=== PATIENT | female | born 1965 | race Caucasian/White ===

== ENCOUNTER 2019-02-13 13:39 | Inpatient (IN) | payer MEDICAID ==
[~2019-02-13] VITALS: Ht 157.5 cm; Wt 86.6 kg
--- NOTE | 2019-02-13 14:00 | NUR ---
no answer in er lobby
[2019-02-13 14:45] VITALS: BP 140/76
--- NOTE | 2019-02-13 15:12 | NUR ---
TO ED 08 WITH STEADY GAIT
--- NOTE | 2019-02-13 15:30 | NUR ---
C/O SEVERE ABDOMINAL PAIN AT SITE OF WOUND VAC FOR 1 WEEK. PT UNDERWENT SURGERY FOR UMBILICAL HERNIA AND SITE BECAME INFECTED, WOUND VAC WAS PLACED TWO WEEKS AGO. ONE WEEK AGO PT BEGAN HAVING INTENSE PAIN/ ODOR/ DISCHARGE AT SITE OF WOUND VAC. PT STATES THAT A HOME HEALTH NURSE VISITS TWICE A WEEK TO CHANGE WOUND VAC, LAST CHANGE WAS ON SATURDAY. PMH: DIABETES, HTN, HYSTERECTOMY MEDS: LISINOPRIL, GABAPENTIN, INSULIN PUMP, ANALOG, TRULICITY NKA POC GLUCOSE: 217
--- NOTE | 2019-02-13 15:53 | NUR ---
PT AMBULATED TO BATHROOM.
[2019-02-13] MEDS ORDERED: NACL 0.9% 1,000 ML IV ONE (16:35)
[2019-02-13] MEDS ORDERED: MORPHINE SULFATE 4 MG/ML SYR IVP ONE (16:35)
[2019-02-13] MEDS ORDERED: PIPERACILLIN/TAZOBACTAM 3.375 GM in DEXTROSE 5% 50 ML IV ONE (16:35)
[2019-02-13] MEDS ORDERED: VANCOMYCIN 1,000 MG in DEXTROSE 5% 250 ML IV ONE (16:35)
--- NOTE | 2019-02-13 16:41 | NUR ---
LAB AT BEDSIDE TAKING BLOOD
[2019-02-13] MEDS ORDERED: VANCOMYCIN 1,000 MG VIAL ONE (16:55)
[2019-02-13] MEDS ORDERED: PIPERACILLIN/TAZOBACTAM 3.375 GM VIAL IV ONE (16:55)
[2019-02-13 17:04] LABS: BASOPHILS # (AUTO) 0.1 K/uL (0.00-0.22); BASOPHILS % (AUTO) 0.9 % (0.0-2.0); EOSINOPHILS # (AUTO) 0.3 K/uL (0-0.4); EOSINOPHILS % (AUTO) 2.7 % (0.0-4.0); HEMATOCRIT 38.5 % (36-48); HEMOGLOBIN 12.6 g/dL (12.0-16.0); LYMPHOCYTES # (AUTO) 3.3 K/uL (2.5-16.5); LYMPHOCYTES % (AUTO) 31.6 % (20.5-51.1); MEAN CORPUSCULAR HEMOGLOBIN 28 pg (27-31); MEAN CORPUSCULAR HGB CONC 33 g/dL (33-37); MEAN CORPUSCULAR VOLUME 84.6 fL (80-94); MONOCYTES # (AUTO) 0.6 K/uL (0.8-1.0); MONOCYTES % (AUTO) 6.2 % (1.7-9.3); NEUTROPHILS # (AUTO) 6.1 K/uL (1.8-7.7); NEUTROPHILS % (AUTO) 58.6 % (42.2-75.2); PLATELET COUNT (AUTO) 251 K/uL (140-450); RED BLOOD CELL COUNT(AUTO) 4.56 MIL/uL (4.20-5.40); RED CELL DISTRIBUTION WIDTH 13.7 % (11.6-13.7); WHITE BLOOD COUNT (AUTO) 10.4 K/uL (4.8-10.8)
[2019-02-13 17:21] LABS: ANION GAP 11.7 (8-16); CREATININE 0.9 mg/dL (0.6-1.3); POTASSIUM 4.7 mmol/L (3.5-5.1)
[2019-02-13 17:24] LABS: PROTHROMBIN TIME 9.1 secs (10.8-13.4)
[2019-02-13 17:25] LABS: ALBUMIN 3.2 g/dL (3.4-5.0); TOTAL BILIRUBIN 0.2 mg/dL (0.0-1.0)
--- NOTE | 2019-02-13 17:36 | NUR ---
mixing technician at bedside.
[2019-02-13] MEDS ORDERED: LISI-420 PO (17:38)
[2019-02-13] MEDS ORDERED: DULA1.5S SC (17:38)
[2019-02-13] MEDS ORDERED: GABA600T12 PO (17:38)
[2019-02-13] MEDS ORDERED: TRAM50TA1 PO (17:38)
[2019-02-13] MEDS ORDERED: NACL 0.9% 1,000 ML IV SCH (18:49)
[2019-02-13] MEDS ORDERED: DOCUSATE SODIUM 100 MG GELCAP PO PRN (18:50)
[2019-02-13] MEDS ORDERED: ACETAMINOPHEN 325 MG TAB PO PRN (18:50)
[2019-02-13] MEDS ORDERED: ONDANSETRON 4 MG/2 ML VIAL IM/IVP PRN (18:50)
[2019-02-13] MEDS ORDERED: LORazepam 2 MG/ML VIAL IM/IVP PRN (18:50)
[2019-02-13] MEDS ORDERED: DEXTROSE 50% 50 ML SYR IVP PRN (18:55)
--- NOTE | 2019-02-13 19:28 | NUR ---
Patient will be admitted to care of DR ELIAS. Admited to TELE. Will go to room 120B. Belongings list completed. Report to VERONICA
--- NOTE | 2019-02-13 19:30 | NUR ---
PT ARRIVED ON FLOOR VIA GURNEY, REPORT GIVEN BY ER NURSE AT BEDSIDE FOR CONTINUITY OF CARE, PT FRIEND AT BEDSIDE. PT BROUGHT TO ROOM 120 AND AMBULATED TO TO BED B. [PT C/O 11/27 UNRELIEVED PAIN IN POST SURGICAL UMBULICAS SITE. PT ALSO HS A 20G ON LEFT F/A INTACT AD FLUSHED PATNET . PT HAS 200MLS OF BOLUS LEFT FROM ER. PT SKIN INTACT EXCEPT FOR WOUND SITE. WOUND VAC PULLED OUT OF WOUND AND SWAB OF WOUND VAC AND WOUND TO DETERMINE BACTERIA IN WOUND WHICH IS CAUSING MILD UNPLEASANT ODOR AND SOME YELLOW DRAINAGE. PT ALSO HAD MRSA SWAB, SWABS SENT TO LAB. V/S FOLLOWS; T 97.2 P 72 R 18 B/P 138/51 02 97% ON ROOM AIR. UNIVERSAL FALLS PRECAUTIONS IN PLACE
[2019-02-13] MEDS ORDERED: TRAZ-343 PO (19:34)
[2019-02-13] MEDS: MORPHINE SULFATE 2 MG/ML SYR IVP PRN (19:38)
[2019-02-13 19:40] VITALS: BP 138/51
--- NOTE | 2019-02-13 19:40 | NUR ---
MD WESLEY AT BEDSIDE. SHE ORDERED ALSO PRN PAIN MEDICATION MORPHINE IVP WHICH WAS GIVEN AT BEDSIDE. FOR C/O OF SEVERE PAIN. UMBILICUS WOUND MEASURES 3CM X3CM X 2CM DEPTH AND SINUS TRACT AT 12 O CLOCK MEASURE 1CM DEPTH. MILD YELLOW SEROSANGUINEOUS DRAINAGE NOTED. PT WOUND CLEANED , PICTURE TAKEN PROTOCOL. ALL UNIVERSAL FALLS PRECAUTIONS IN PLACE.
[2019-02-13 19:53] LABS: APPEARANCE,URINE CLEAR (CLEAR); BILIRUBIN,URINE NEGATIVE (NEGATIVE); BLOOD, URINE NEGATIVE (NEGATIVE); COLOR,URINE YELLOW (YELLOW); LEUKOCYTE ESTERASE ,URINE TRACE (NEGATIVE); NITRITE, URINE NEGATIVE (NEGATIVE); UGLUCOSE 1+ (NEGATIVE)
[2019-02-13 19:59] LABS: RBC,URINE 0 /HPF (0-5); WBC,URINE 0-5 /HPF (0-5)
[2019-02-13 20:09] LABS: BARBITURATE, URINE NEG. ng/ml (NEG <=200); BENZODIAZEPINE, URINE NEG. ng/mL (NEG <=200); CANNABINOID, URINE NEG. ng/mL (NEG <=50); COCAINE, URINE NEG. ng/mL (NEG <=300); OPIATE, URINE NEG. ng/mL (NEG <=2000); PHENCYCLIDINE SCREEN,URINE NEG. ng/mL (NEG <=25)
[2019-02-13 20:10] LABS: CHOL/HDL RATIO 2.8 (1-4.5); MAGNESIUM 2.1 mg/dL (1.8-2.4); PHOSPHORUS 2.9 mg/dL (2.5-4.9); THYROID STIMULATING HORMONE 1.14 uIU/mL (0.34-3.74)
[2019-02-13] MEDS ORDERED: NON-FORMULARY ITEM (Gabapentin 600 MG) PO SCH (21:00)
[2019-02-13] MEDS: BLOOD GLUCOSE MONITORING 1 DEV DEV FS SCH (21:00)
[2019-02-13] MEDS ORDERED: PHARMACY TO DOSE MC PRN (21:45)
--- NOTE | 2019-02-13 21:45 | NUR ---
PT GIVEN ORDERED FLUIDS, BOLUS COMPLETED. WELL ORDERED MEDS AT THIS TIME OF NEURONTIN AND TRAZODONE . ANCEF 500MG HUNG AND RUNNING AT 100MLS/ ORDERED. FINGERSTICK IS 122 NO HUMALOG COVERAGE NEEDED. ALL REQUESTED NEEDS ATTENDED BY STAFF. AND CALL BRITT IN REACH.
--- NOTE | 2019-02-13 22:00 | NUR ---
ULTRA SOUND OF ABDOMEN DONE AT BEDSIDE.
[2019-02-13] MEDS ORDERED: cefTRIAXone 500 MG VIAL ONE (22:28)
[2019-02-13] MEDS ORDERED: ceFAZolin 1,000 MG VIAL ONE (22:29)
[2019-02-13] MEDS: traZODone 50 MG TAB PO SCH (22:36)
[2019-02-13] MEDS: GABAPENTIN 300 MG CAP PO SCH (22:37)
[2019-02-13] MEDS: HYDROcodone/APAP 5/325 MG 1 TAB TAB PO PRN (22:38)
--- NOTE | 2019-02-13 22:38 | NUR ---
WOUND WAS CLEANED AND DRESSED AT BEDSIDE. PT C/O SEVERE PAIN AND WAS GIVEN IVP MORPHINE ORDERED. WILL MONITOR FOR REIELF.
[2019-02-14] MEDS ORDERED: traMADol 50 MG TAB PO SCH
[2019-02-14] MEDS: MORPHINE SULFATE 2 MG/ML SYR IVP PRN ×5 (00:26→21:25)
--- NOTE | 2019-02-14 00:35 | NUR ---
PT C/O OF SEVERE PAIN IN UMBICAL SURGICAL WOUND WAS GIVEN IVP MORPHINE. V/S FOLLOWS : T 97.0 P 64 R 18 B/P 123/54 02 97% ON ROOM AIR ALL UNIVERSAL PRECAUTIONS IN PLACE.
--- NOTE | 2019-02-14 03:45 | NUR ---
PT IN BED IV SITE INTACT AND RUNNING FLUIDS ORDERED. V/S FOLLOWS: T 97.0 P 70 R 18 B/P 121/61 02 96% ON ROOM AIR.
[2019-02-14 04:00] VITALS: BP 121/61
[2019-02-14] MEDS: DEXT 5% / NACL 0.9% 500 ML IV SCH ×3 (05:25→16:48)
--- NOTE | 2019-02-14 05:55 | NUR ---
PT IN BED C/O OF COLLEGE DIRECTOR PAIN IN ABDOMINAL WOUND, GIVEN IVP MORPHINE. PT FINGERSTICK IS 168, GIVEN 4 UNITS OF HUMALOG COVERAGE . ALL OTHER REQUESTED NEEDS ATTENDED BY STAFF AND CALL BRITT IN REACH.
[2019-02-14] MEDS: BLOOD GLUCOSE MONITORING 1 DEV DEV FS SCH ×4 (05:58→21:11)
[2019-02-14] MEDS: INSULIN LISPRO SLIDING SCALE 100 UNITS/ML VIAL SUBQ PRN ×4 (06:02→21:09)
[2019-02-14 06:07] LABS: HEPATITIS A ANTIBODY IGM Negative (Negative); HEPATITIS B CORE AB TOTAL Negative (Negative); HEPATITIS B SURFACE ANTIBODY Reactive (.); HEPATITIS B SURFACE ANTIGEN Negative (Negative)
[2019-02-14 06:45] LABS: BASOPHILS # (AUTO) 0.1 K/uL (0.00-0.22); BASOPHILS % (AUTO) 0.8 % (0.0-2.0); EOSINOPHILS # (AUTO) 0.3 K/uL (0-0.4); EOSINOPHILS % (AUTO) 3.2 % (0.0-4.0); HEMATOCRIT 37.9 % (36-48); HEMOGLOBIN 12.5 g/dL (12.0-16.0); LYMPHOCYTES # (AUTO) 3.7 K/uL (2.5-16.5); LYMPHOCYTES % (AUTO) 35.6 % (20.5-51.1); MEAN CORPUSCULAR HEMOGLOBIN 28 pg (27-31); MEAN CORPUSCULAR HGB CONC 33 g/dL (33-37); MEAN CORPUSCULAR VOLUME 84.7 fL (80-94); MONOCYTES # (AUTO) 0.7 K/uL (0.8-1.0); MONOCYTES % (AUTO) 6.6 % (1.7-9.3); NEUTROPHILS # (AUTO) 5.7 K/uL (1.8-7.7); NEUTROPHILS % (AUTO) 53.8 % (42.2-75.2); PLATELET COUNT (AUTO) 236 K/uL (140-450); RED BLOOD CELL COUNT(AUTO) 4.48 MIL/uL (4.20-5.40); RED CELL DISTRIBUTION WIDTH 13.2 % (11.6-13.7); WHITE BLOOD COUNT (AUTO) 10.5 K/uL (4.8-10.8)
[2019-02-14 07:03] LABS: ANION GAP 9.1 (8-16); CARBON DIOXIDE 30.5 mmol/L (21-32); CREATININE 0.8 mg/dL (0.6-1.3); POTASSIUM 4.6 mmol/L (3.5-5.1)
[2019-02-14 07:08] LABS: MAGNESIUM 1.8 mg/dL (1.8-2.4); PHOSPHORUS 3.4 mg/dL (2.5-4.9)
--- NOTE | 2019-02-14 07:25 | NUR ---
RECEIVED REPORT FROM BRODIE LORENZO. (SWITCHED PTS IN THE MORNING). PT IS AWAKE AND ALERT, IN NO ACUTE DISTRESS, ON ROOM AIR, SKIN INTACT ASIDE FROM THE UMBILICAL CELLULITICS, COVERED BY A DRESSING. PT IS NPO EXCEPT MEDS FOR A POSSIBLE I&D, AFTER DR AGUILAR SEES HER LATER TODAY. CALL LIGHT IS WITHIN REACH. WILL CONTINUE TO MONITOR.
[2019-02-14 08:00] VITALS: BP 106/64
--- NOTE | 2019-02-14 09:05 | NUR ---
PT HAS BEEN SCREENED AND CATEGORIZED MODERATE NUTRITION RISK. PT WILL BE SEEN WITHIN 3-5 DAYS OF ADMISSION. 02/16/19-02/18/[address]
--- NOTE | 2019-02-14 09:40 | NUR ---
GOT A CALL FROM LAB, SAYING THAT [facility] HAS RECEIVED A SPECIMEN FROM THE PT - A TUBE WITH A WOUND CULTURE, AND A LONG "TUBE", WHICH THEY CANNOT IDENTIFY. I CALLED [facility] AND SPOKE WITH THE MILL OPERATOR HEAD, SHE SAID THERE IS NO TIME WRITTEN ON THE TUBE, ONLY A DATE "02/13/19", AND THAT IT LOOKS LIKE A "CATHETER TUBE" AND SMELLS BAD. SHE SAID THAT THE TUBE IS WRAPPED IN A "SARAN WRAP". FROM THE DESCRIPTION, IT APPEARS THAT THE TUBE IS FROM PT'S WOUND VAC THAT SHE NO LONGER HAS. I SPOKE TO DR ELLINGTON REGARDING WHETHER WE NEED TO CULTURE THIS TUBE, HE SAID NO. ONLY NEED THE WOUND SWAB CULTURE. DR ELLINGTON SAID IT IS OK FOR [facility] TO DISCARD OF THIS TUBE.
[2019-02-14] MEDS: LISINOPRIL 20 MG TAB PO SCH (09:53)
[2019-02-14] MEDS: GABAPENTIN 300 MG CAP PO SCH ×2 (09:53→20:56)
[2019-02-14] MEDS: NICOTINE TRANSD SYS 14 MG/24 HR PATCH TD SCH (09:53)
[2019-02-14] MEDS: LACTOBACILLUS RHAMNOSUS GG 1 EACH CAP PO SCH (09:54)
--- NOTE | 2019-02-14 11:02 | NUR ---
OBTAINED CONSENT FOR IV CONTRAST FOR ABD/PEL CT SCAN W/ CONTRAST.
--- NOTE | 2019-02-14 11:05 | NUR ---
ALEJANDRAVD A CALL FROM PT'S SISTER BRANDON, SHE SAID THAT PT'S FORMER SURGEON FROM [facility] WHO DID HER ABD SURGERY HAS "MESSED UP HER SURGERY FOUR TIMES", AND THAT THE FAMILY IS GOING TO "FILE A MALPRACTICE LAWSUIT" AGAINST THIS SURGEON, AND THAT THE PT IS NOT TO HAVE ANY TYPE OF CONTACT WITH THIS SURGEON. I SPOKE WITH THE PT, THE PT IS ALREADY AWARE OF THIS, AND THIS WAS HER PERSONAL DECISION. I CLARIFIED WITH DR ELLINGTON THAT THE PT WILL NOT BE SENT OVER TO [facility] OR HAVE ANY KIND OF MEDICAL CONSULTS WITH HER PREVIOUS SURGEON.
[2019-02-14] MEDS: metroNIDAZOLE 500 MG/NS PREMIX 100 ML IV SCH ×2 (12:25→20:55)
--- NOTE | 2019-02-14 12:39 | NUR ---
CALLED RADIOLOGY TO CLARIFY WHEN THE PT WILL HAVE HER CT SCAN, SOLUTIONS ENGINEER SAID SHE WILL COME TO [place] RAISER THE PT SHORTLY. PT IS LYING IN BED COMFORTABLY, NO S/S OF DISTRESS, SLIDING SCALE INSULIN 2 UNITS ADMINISTERED, IV FLAGYL IS INFUSING.
--- NOTE | 2019-02-14 13:05 | NUR ---
STAVE JOINTER HERE TO TAKE PT TO ABD/PEL CT SCAN.
--- NOTE | 2019-02-14 13:33 | NUR ---
PT IS BACK FROM CT SCAN.
--- NOTE | 2019-02-14 13:55 | NUR ---
ASKED DR ELLINGTON IF PT CAN GO BACK ON A DIET SINCE SHE IS DONE WITH HER CT SCAN. PT LIKELY WON'T HAVE I&D TODAY, AND MAY LIKELY HAVE IT TOMORROW. DR ELLINGTON SAID HE WILL PUT PT BACK ON A DIET FOR TODAY.
[2019-02-14 16:00] VITALS: BP 140/61
--- NOTE | 2019-02-14 16:00 | NUR ---
GOT A CALL FROM PHARMACY, SAYING THAT WE DON'T CARRY TRULICITY IN OUR HOSPITAL, AND THAT PT NEEDS TO PROVIDE IT. I TALKED TO THE PT AND HER FAMILY, PT SAID THAT SHE TAKES TRULICITY ONCE A WEEK ON MONDAYS, AND THAT SOMEONE WILL BRING IT FROM HER HOME IF SHE IS STILL EXPECTED TO BE INPATIENT ON SATURDAY. PHARMACY NOTIFIED.
[2019-02-14] MEDS: HYDROcodone/APAP 5/325 MG 1 TAB TAB PO PRN (16:20)
--- NOTE | 2019-02-14 16:42 | NUR ---
PT VISITING WITH FAMILY AT BEDSIDE.
--- NOTE | 2019-02-14 19:20 | NUR ---
ENDORSED PT TO AIRPORT SKILLED MAINTENANCE SUPERVISOR NURSE IN STABLE CONDITION
--- NOTE | 2019-02-14 19:21 | NUR ---
RECEIVED REPORT FROM DAY SHIFT NURSE. PT LYING IN BED. AAOX4. NO C/O PAIN OR SOB. ON ROOM AIR. PT HAS ABDOMINAL DRESSING, DRY AND INTACT. IV TO LEFT FA #20G, D5NS AT 60 ML/HR INFUSING WELL. SAFETY PRECAUTION IN PLACE. CALL LIGHT WITHIN REACH.
[2019-02-14] MEDS: traZODone 50 MG TAB PO SCH (20:56)
--- NOTE | 2019-02-14 22:00 | NUR ---
PT REQUESTED DRESSING CHANGE ON HER ABDOMEN. MINIMAL DRAINAGE NOTED.
[2019-02-14] MEDS: ZOLPIDEM 5 MG TAB PO PRN (22:29)
--- NOTE | 2019-02-14 22:30 | NUR ---
PT C/O UNABLE TO SLEEP. PRN AMBIEN 5 MG PO GIVEN.
[2019-02-15] VITALS: BP 137/54
--- NOTE | 2019-02-15 01:00 | NUR ---
PT AMBULATES TO BATHROOM WITH MINIMAL ASSIST. NO C/O PAIN AT THIS TIME.
--- NOTE | 2019-02-15 03:50 | NUR ---
PT SLEEPING. NO S/S OF RESP DISTRESS NOTED. NO S/S OF PAIN.
[2019-02-15] MEDS: metroNIDAZOLE 500 MG/NS PREMIX 100 ML IV SCH ×3 (04:20→22:00)
[2019-02-15] MEDS: DEXT 5% / NACL 0.9% 500 ML IV SCH ×4 (04:21→22:01)
[2019-02-15] MEDS: MORPHINE SULFATE 2 MG/ML SYR IVP PRN ×3 (05:36→21:51)
--- NOTE | 2019-02-15 05:36 | NUR ---
PT C/O ABDOMINAL PAIN 09/27. MORPHINE 2 MG IVP GIVEN.
[2019-02-15] MEDS: BLOOD GLUCOSE MONITORING 1 DEV DEV FS SCH ×4 (06:17→21:06)
--- NOTE | 2019-02-15 06:30 | NUR ---
PT'S BLOOD SUGAR 193. REFUSED HUMALOG INSULIN, PT NPO. DENIES PAIN AT THIS TIME.
[2019-02-15 06:33] LABS: BASOPHILS # (AUTO) 0.1 K/uL (0.00-0.22); BASOPHILS % (AUTO) 0.8 % (0.0-2.0); EOSINOPHILS # (AUTO) 0.2 K/uL (0-0.4); EOSINOPHILS % (AUTO) 3.5 % (0.0-4.0); HEMATOCRIT 34.9 % (36-48); HEMOGLOBIN 11.7 g/dL (12.0-16.0); LYMPHOCYTES # (AUTO) 2.5 K/uL (2.5-16.5); LYMPHOCYTES % (AUTO) 34.1 % (20.5-51.1); MEAN CORPUSCULAR HEMOGLOBIN 28 pg (27-31); MEAN CORPUSCULAR HGB CONC 33 g/dL (33-37); MEAN CORPUSCULAR VOLUME 84.5 fL (80-94); MONOCYTES # (AUTO) 0.5 K/uL (0.8-1.0); MONOCYTES % (AUTO) 7.4 % (1.7-9.3); NEUTROPHILS # (AUTO) 3.9 K/uL (1.8-7.7); NEUTROPHILS % (AUTO) 54.2 % (42.2-75.2); PLATELET COUNT (AUTO) 216 K/uL (140-450); RED BLOOD CELL COUNT(AUTO) 4.13 MIL/uL (4.20-5.40); RED CELL DISTRIBUTION WIDTH 13.3 % (11.6-13.7); WHITE BLOOD COUNT (AUTO) 7.2 K/uL (4.8-10.8)
[2019-02-15 06:53] LABS: ANION GAP 10.6 (8-16); CARBON DIOXIDE 26.3 mmol/L (21-32); CREATININE 0.6 mg/dL (0.6-1.3); POTASSIUM 3.9 mmol/L (3.5-5.1)
[2019-02-15 06:54] LABS: MAGNESIUM 1.9 mg/dL (1.8-2.4); PHOSPHORUS 3.4 mg/dL (2.5-4.9)
--- NOTE | 2019-02-15 07:20 | NUR ---
ENDORSED PT TO DAY SHIFT NURSE. PT IN STABLE CONDITION.
--- NOTE | 2019-02-15 07:21 | NUR ---
REPORT RECEIVED FROM ATMOSPHERIC SCIENCES PROFESSOR NURSE FOR CONTINUITY OF CARE. BED IN LOW POSITION. CALL LIGHT ON AND WITHIN REACH. WILL CONTINUE TO MONITOR.
[2019-02-15 08:00] VITALS: BP 122/66
[2019-02-15] MEDS: LISINOPRIL 20 MG TAB PO SCH (09:21)
[2019-02-15] MEDS: LACTOBACILLUS RHAMNOSUS GG 1 EACH CAP PO SCH ×2 (09:21→09:28)
[2019-02-15] MEDS: GABAPENTIN 300 MG CAP PO SCH ×2 (09:21→21:11)
[2019-02-15] MEDS: NICOTINE TRANSD SYS 14 MG/24 HR PATCH TD SCH (09:25)
--- NOTE | 2019-02-15 10:00 | NUR ---
PATIENT IS RESTING IN BED, NO DISTRESS NOTED. VITALS ARE STABLE. DRESSING CHANGED ON ABD. CONSULT FROM DR. SUMNER PENDING.
[2019-02-15] MEDS: HYDROcodone/APAP 5/325 MG 1 TAB TAB PO PRN ×2 (10:12→23:42)
--- NOTE | 2019-02-15 12:30 | NUR ---
PATIENT IS RESTING IN BED, MEDICATIONS ADMINISTERED AND TOLERATED WELL. WILL CONTINUE TO MONITOR.
--- NOTE | 2019-02-15 15:00 | NUR ---
PATIENT IS SCHEDULED FOR SURGERY TOMORROW WITH DR. AGUILAR.
[2019-02-15 16:00] VITALS: BP 129/61
--- NOTE | 2019-02-15 17:30 | NUR ---
MEDICATIONS ADMINISTERED, TOLERATED WELL, WILL CONTINUE TO MONITOR.
[2019-02-15] MEDS: INSULIN LISPRO SLIDING SCALE 100 UNITS/ML VIAL SUBQ PRN ×2 (18:38→21:10)
--- NOTE | 2019-02-15 19:30 | NUR ---
ENDORSED TO LOSS PREVENTION DETECTIVE NURSE FOR CONTINUITY OF CARE.
--- NOTE | 2019-02-15 19:30 | NUR ---
RECEIVED BEDSIDE REPORT FROM AM SHIFT BRODIE JOHNS FOR PT'S CONTINUITY OF CARE. PT IS LYING DOWN, AAOX4, IS ON ROOM AIR, HAS LEFT FA 20G WITH D5 NS AT 60ML/HR, DENIES ANY PAIN AT THIS TIME. EXPLAINED TO PT THE FORMULA MAKER ROUTINE, PT VERBALIZED UNDERSTANDING. SAFETY MEASURES IN PLACE, CALL LIGHT IS WITHIN REACH. WILL MONITOR PT THROUGHOUT SHIFT.
--- NOTE | 2019-02-15 20:00 | NUR ---
PT'S IV INFILTRATED. WILL START NEW IV SITE.
[2019-02-15] MEDS: traZODone 50 MG TAB PO SCH (21:11)
--- NOTE | 2019-02-15 21:15 | NUR ---
ADMINISTERED SCHEDULED MEDICATIONS ORDERED. PT TOLERATED THEM WELL. PT TEACHING GIVEN. PT VERBALIZED UNDERSTANDING.
--- NOTE | 2019-02-15 21:51 | NUR ---
PT WAS ASSISTED TO THE RESTROOM, PT TOLERATED ACTIVITY WELL. PHOTOGRAPH TAKEN OF THE LOWER ABD OPEN WOUND. PT C/O PAIN, ADMINISTERED PRN IVP PAIN MEDICATION ORDERED. WILL CONTINUE TO MONITOR PT.
--- NOTE | 2019-02-15 22:00 | NUR ---
NEW IV INSERT: LEFT WRIST 22G. PT TOLERATED IT WELL.
[2019-02-15] MEDS: ZOLPIDEM 5 MG TAB PO PRN (22:11)
--- NOTE | 2019-02-15 22:15 | NUR ---
ADMINISTERED IV ABX ORDERED. PT REQUESTED FOR MEDICATION FOR SLEEP AID. ADMINISTERED PRN PO MEDICATION ORDERED. WILL CONTINUE TO MONITOR PT.
[2019-02-15] MEDS ORDERED: ceFAZolin 1,000 MG VIAL ONE (22:32)
--- NOTE | 2019-02-15 23:54 | NUR ---
PT C/O PAIN, 07/28. REQUESTED FOR PRN PO PAIN MEDICATION. ADMINISTERED PRN PO PAIN MEDICATION ORDERED. VS CHECKED AND WILL RE-CHECK, WAS SLIGHTLY ELEVATED. ENCOURAGED PT TO USE NON-PHARMACOLOGIC TECHNIQUES FOR PAIN RELIEF. PT VERBALIZED UNDERSTANDING.
[2019-02-16] VITALS: BP 152/52
[2019-02-16] MEDS: MORPHINE SULFATE 2 MG/ML SYR IVP PRN ×3 (00:54→10:09)
--- NOTE | 2019-02-16 00:54 | NUR ---
PT STILL C/O PAIN 09/27. ADMINISTERED PRN IVP PAIN MEDICATION ORDERED. VS CHECKED AND CHARTED. WILL CONTINUE TO MONITOR PT.
--- NOTE | 2019-02-16 02:30 | NUR ---
MADE ROUNDS. PT LYING DOWN ASLEEP WITH NO SIGNS OF DISTRESS. WILL CONTINUE TO MONITOR PT.
--- NOTE | 2019-02-16 04:45 | NUR ---
PT C/O ABD PAIN. ADMINISTERED PRN IVP PAIN MEDICATION ORDERED. WILL CONTINUE TO MONITOR PT.
[2019-02-16] MEDS: BLOOD GLUCOSE MONITORING 1 DEV DEV FS SCH ×4 (06:00→21:00)
--- NOTE | 2019-02-16 06:00 | NUR ---
PT COLLECTED URINE FOR URINE PREG, BLOOD GLUCOSE CHECKED AND CHARTED. SURGERY TIME AT 1230, PREOP CHECKLIST DONE. WILL ADMINISTER INSULIN PER PROTOCOL.
[2019-02-16] MEDS: metroNIDAZOLE 500 MG/NS PREMIX 100 ML IV SCH ×2 (06:08→13:00)
[2019-02-16 06:31] LABS: BASOPHILS # (AUTO) 0.1 K/uL (0.00-0.22); BASOPHILS % (AUTO) 0.6 % (0.0-2.0); EOSINOPHILS # (AUTO) 0.3 K/uL (0-0.4); EOSINOPHILS % (AUTO) 3.4 % (0.0-4.0); HEMATOCRIT 35.3 % (36-48); HEMOGLOBIN 11.5 g/dL (12.0-16.0); LYMPHOCYTES # (AUTO) 3.2 K/uL (2.5-16.5); LYMPHOCYTES % (AUTO) 35.4 % (20.5-51.1); MEAN CORPUSCULAR HEMOGLOBIN 28 pg (27-31); MEAN CORPUSCULAR HGB CONC 33 g/dL (33-37); MEAN CORPUSCULAR VOLUME 84.6 fL (80-94); MONOCYTES # (AUTO) 0.5 K/uL (0.8-1.0); MONOCYTES % (AUTO) 5.9 % (1.7-9.3); NEUTROPHILS # (AUTO) 4.9 K/uL (1.8-7.7); NEUTROPHILS % (AUTO) 54.7 % (42.2-75.2); PLATELET COUNT (AUTO) 213 K/uL (140-450); RED BLOOD CELL COUNT(AUTO) 4.17 MIL/uL (4.20-5.40); RED CELL DISTRIBUTION WIDTH 13.3 % (11.6-13.7); WHITE BLOOD COUNT (AUTO) 8.9 K/uL (4.8-10.8)
[2019-02-16] MEDS: INSULIN LISPRO SLIDING SCALE 100 UNITS/ML VIAL SUBQ PRN ×2 (06:37→23:00)
--- NOTE | 2019-02-16 06:40 | NUR ---
ADMINISTERED INSULIN SUBQ PER SS PROTOCOL. PT TOLERATED IT WELL. PT DENIES ANY PAIN OR DISCOMFORT AT THIS TIME. WILL ENDORSE TO AM SHIFT RN FOR PT'S CONTINUITY OF CARE.
[2019-02-16 07:23] LABS: ANION GAP 11.5 (8-16); CARBON DIOXIDE 27.4 mmol/L (21-32); CREATININE 0.7 mg/dL (0.6-1.3); POTASSIUM 3.9 mmol/L (3.5-5.1)
--- NOTE | 2019-02-16 07:25 | NUR ---
REPORT RECEIVED FROM INSOLE AND OUTSOLE PREPARER NURSE FOR CONTINUITY OF CARE, PATIENT IS RESTING IN BED, SURGERY SCHEDULED TODAY FOR [address] KIRAN AGUILAR FOR ABDOMINAL WALL ABSCESS REMOVAL AND DRAINAGE. WILL CONTINUE TO MONITOR FOR CHANGES IN DISEASE PROCESS AND PATIENTS SAFETY.
[2019-02-16 07:36] LABS: MAGNESIUM 1.7 mg/dL (1.8-2.4); PHOSPHORUS 3.1 mg/dL (2.5-4.9)
[2019-02-16 08:00] VITALS: BP 119/62
--- NOTE | 2019-02-16 09:04 | NUR ---
PENDING WOUND CONSULT. PATIENT SCHEDULED FOR SURGERY TODAY.
[2019-02-16] MEDS: DEXT 5% / NACL 0.9% 500 ML IV SCH ×2 (09:35→18:54)
[2019-02-16] MEDS ORDERED: MAGNESIUM OXIDE 400 MG TAB PO SCH (10:00)
[2019-02-16] MEDS: LACTOBACILLUS RHAMNOSUS GG 1 EACH CAP PO SCH (10:08)
[2019-02-16] MEDS: NICOTINE TRANSD SYS 14 MG/24 HR PATCH TD SCH (10:09)
[2019-02-16] MEDS: GABAPENTIN 300 MG CAP PO SCH ×2 (10:10→22:32)
[2019-02-16] MEDS: LISINOPRIL 20 MG TAB PO SCH (10:10)
--- NOTE | 2019-02-16 10:58 | NUR ---
DC [age] YRS OLD FEMALE PATIENT WAS ADMITTED FROM HOME WITH A DX OF ABDOMINAL CELLULITIS. PT HAS A HX OF DM AND HTN . PT HAD S/P HERNIA MESH REPAIR WITH COMPLICATION AND WOUND VAC DONE AT [facility] WITH DR COATS AND SENT WITH HOME HEALTH. STARTED ON ANCEF IV AND CULTURELLE WOUND URINE AND BLOOD CULTURE PENDING US OF ABDOMEN SUGGESTED CORRELATION FOR CELLULITIS , CONSULTED WITH INFECTION DISEASE DR PERRY AND DR AGUILAR SURGEON . PLAN TO PERFORM I&D BY DR AGUILAR TODAY. DC PLAN TO GO HOME AND FOLLOW UP WITH PCP. CM TO FOLLOW. Addendum: 02/16/19 at 1500 by Elvia HARRIS I faxed patient's current home health company, [place] [employer], phone number , fax number . Addendum: 02/16/19 at 3244 by Elvia HARRIS I faxed home health order to [facility]. Addendum: 02/17/19 at 1519 by Elvia HARRIS I called and spoke with Mindy from "[employer] [facility] [facility]" at [facility], phone number , she stated the office is currently closed and will open again on 02/19/19. I faxed 's home health order to [facility]. I also faxed 's current [facility] order to [facility]. correction for note dated on 02/16/19: I faxed patient's clinical information to [facility] Addendum: 02/19/19 at 1103 by Elvia HARRIS I called and spoke with Jb from [facility], phone number , he stated they will send a nurse to patient's home and is aware patient was discharged on 02/17/19.
--- NOTE | 2019-02-16 13:00 | NUR ---
PATIENT PICKED UP BY OR NURSES FOR SURGERY. MEDICATIONS ON HOLD UNTIL RETURN FROM OR.
[2019-02-16] MEDS ORDERED: BUPIVACAINE-MPF/EPI 0.25% 30 ML VIAL INJ ONE (13:12)
[2019-02-16] MEDS ORDERED: LIDOCAINE 1% 500 MG/50 ML VIAL ONE (13:13)
[2019-02-16] MEDS ORDERED: fentaNYL 0.05 MG/ML VIAL ONE (13:24)
[2019-02-16] MEDS ORDERED: KETOROLAC 30 MG/ML VIAL ONE (13:25)
[2019-02-16] MEDS ORDERED: ePHEDrine 50 MG/ML VIAL ONE (13:25)
[2019-02-16] MEDS ORDERED: DEXAMETHASONE 4 MG/ML VIAL ONE (13:25)
[2019-02-16] MEDS ORDERED: DESFLURANE 240 ML BTL INH ONE (13:25)
[2019-02-16] MEDS ORDERED: PROPOFOL 200 MG/20 ML VIAL IV ONE (13:25)
[2019-02-16] MEDS ORDERED: ONDANSETRON 4 MG/2 ML VIAL ONE (13:25)
[2019-02-16] MEDS ORDERED: BACITRACIN 50000 UNITS/1 VIAL ONE (13:53)
--- NOTE | 2019-02-16 15:30 | NUR ---
PATIENT IS IN OPERATING ROOM.
[2019-02-16 16:00] VITALS: BP 149/68
--- NOTE | 2019-02-16 17:30 | NUR ---
PATIENT RETURNED FROM OPERATING ROOM, AAO X 4. NO SIGNS OF DISTRESS NOTED AT THIS TIME. FAMILY AT BEDSIDE. WILL CONTINUE TO MONITOR.
[2019-02-16] MEDS ORDERED: TRULICITY 0.75 MG/0.5 ML SUBQ SCH (18:00)
--- NOTE | 2019-02-16 19:36 | NUR ---
PATIENT IS RESTING IN BED, IV FLUID RUNNING. WILL CONTINUE TO MONITOR.
[2019-02-16] MEDS: HYDROcodone/APAP 5/325 MG 1 TAB TAB PO PRN (20:24)
[2019-02-16] MEDS: traZODone 50 MG TAB PO SCH (22:32)
[2019-02-17] VITALS: BP 150/63
[2019-02-17] MEDS: HYDROcodone/APAP 5/325 MG 1 TAB TAB PO PRN ×4 (01:07→23:12)
--- NOTE | 2019-02-17 01:07 | NUR ---
PT C/O ANXIETY AND 6/10 PAIN, GIVEN ATIVAN AND NORCO MD ORDERED. PT TOLERATED WELL.
[2019-02-17] MEDS: NACL 0.9% 1,000 ML IV SCH ×2 (02:54→18:35)
[2019-02-17] MEDS: metroNIDAZOLE 500 MG/NS PREMIX 100 ML IV SCH ×4 (04:08→21:01)
--- NOTE | 2019-02-17 04:08 | NUR ---
GIVEN FLAGYL MD ORDERED. PT TOLERATED WELL. PT C/O INCISION PAIN 08/27. WILL ADMINISTER PAIN MED.
[2019-02-17] MEDS: MORPHINE SULFATE 2 MG/ML SYR IVP PRN ×4 (04:46→20:29)
--- NOTE | 2019-02-17 04:46 | NUR ---
GIVEN MORPHINE FOR 7/10 INCISION PAIN MD ORDERED. PT TOLERATED WELL.
--- NOTE | 2019-02-17 05:20 | NUR ---
GIVEN ANCEF MD ORDERED. PT TOLERATED WELL.
[2019-02-17] MEDS: BLOOD GLUCOSE MONITORING 1 DEV DEV FS SCH ×4 (06:03→20:19)
[2019-02-17] MEDS: INSULIN LISPRO SLIDING SCALE 100 UNITS/ML VIAL SUBQ PRN ×4 (06:05→20:30)
--- NOTE | 2019-02-17 06:05 | NUR ---
BS CHECKED, 224, ADMINISTERED INSULIN MD ORDERED. PT TOLERATED WELL.
[2019-02-17 06:21] LABS: BASOPHILS % (AUTO) 0.4 % (0.0-2.0); HEMATOCRIT 34.9 % (36-48); HEMOGLOBIN 11.4 g/dL (12.0-16.0); LYMPHOCYTES # (AUTO) 1.4 K/uL (2.5-16.5); LYMPHOCYTES % (AUTO) 10.9 % (20.5-51.1); MEAN CORPUSCULAR HEMOGLOBIN 28 pg (27-31); MEAN CORPUSCULAR HGB CONC 33 g/dL (33-37); MEAN CORPUSCULAR VOLUME 83.9 fL (80-94); MONOCYTES # (AUTO) 0.5 K/uL (0.8-1.0); MONOCYTES % (AUTO) 3.8 % (1.7-9.3); NEUTROPHILS # (AUTO) 11.1 K/uL (1.8-7.7); NEUTROPHILS % (AUTO) 84.9 % (42.2-75.2); PLATELET COUNT (AUTO) 235 K/uL (140-450); RED BLOOD CELL COUNT(AUTO) 4.16 MIL/uL (4.20-5.40); RED CELL DISTRIBUTION WIDTH 13.2 % (11.6-13.7); WHITE BLOOD COUNT (AUTO) 13.1 K/uL (4.8-10.8)
[2019-02-17 06:33] LABS: ANION GAP 15.3 (8-16); CREATININE 0.7 mg/dL (0.6-1.3); POTASSIUM 4.3 mmol/L (3.5-5.1)
[2019-02-17 06:47] LABS: MAGNESIUM 1.8 mg/dL (1.8-2.4); PHOSPHORUS 2.1 mg/dL (2.5-4.9)
--- NOTE | 2019-02-17 07:04 | NUR ---
RECEIVE REPORT FROM NIGHT NURSE, PT IS STABLE ASLEEP IN BED, IV RUNNING NS AT 60 MLS/H, UPDATED WHITE BOARD, CALL LIGHT WITHIN REACH.
[2019-02-17] MEDS: GABAPENTIN 300 MG CAP PO SCH ×2 (09:14→20:18)
--- NOTE | 2019-02-17 09:14 | NUR ---
GAVE PT ORDERED MEDICATION, PT TOLERATED WELL, PT IS STABLE, RESTING IN BED. CALL LIGHT WITHIN REACH.
[2019-02-17] MEDS: NICOTINE TRANSD SYS 14 MG/24 HR PATCH TD SCH (09:29)
[2019-02-17] MEDS: LISINOPRIL 20 MG TAB PO SCH (09:29)
--- NOTE | 2019-02-17 09:45 | NUR ---
ADMINISTERED MORPHINE TO PT PER DR. SUMNER ORDER HE WAS GOING TO DO DRESSING CHANGE. PT TOLERATED IT WELL
--- NOTE | 2019-02-17 12:53 | NUR ---
GAVE PT MORPHINE FOR SEVERE PAIN OF 8/10 AT SURGICAL SITE, PT TOLERATED IT WELL.
[2019-02-17 16:00] VITALS: BP 131/55
--- NOTE | 2019-02-17 18:39 | NUR ---
GAVE NORCO FOR PAIN OF 8/10, BURNING AT SURGICAL SITE. PT IS STABLE. CALL LIGHT WITHIN REACH.
--- NOTE | 2019-02-17 19:14 | NUR ---
GAVE REPORT TO NIGHT NURSE FOR CONTINUITY OF CARE, PT IS STABLE, FAMILY AT BEDSIDE, CALL LIGHT WITHIN REACH.
--- NOTE | 2019-02-17 19:15 | NUR ---
RECEIVED BEDSIDE REPORT FROM AM SHIFT RN FOR PT'S CONTINUITY OF CARE. PT IS LYING DOWN, AAOX4, IS ON ROOM AIR, HAS RH 20G, PATENT, INTACT, AND ASYMPTOMATIC WITH NS AT 60ML/HR, DENIES ANY PAIN AT THIS TIME. EXPLAINED TO PT THE SCALER PACKER ROUTINE, PT VERBALIZED UNDERSTANDING. SAFETY MEASURES IN PLACE, CALL LIGHT IS WITHIN REACH. WILL MONITOR PT THROUGHOUT SHIFT.
[2019-02-17] MEDS ORDERED: SODIUM PHOS / POTASSIUM PHOS 1 PKT PDR PO SCH (20:00)
[2019-02-17] MEDS: traZODone 50 MG TAB PO SCH (20:18)
--- NOTE | 2019-02-17 20:29 | NUR ---
GIVEN ANCEF, TRAZODONE, GABAPENTIN, HEPARIN, NEUTRA-MARTY. PT C/O 08/27 PAIN, GIVEN MORPHINE MD ORDERED, PT TOLERATED WELL.
[2019-02-17] MEDS: ZOLPIDEM 5 MG TAB PO PRN (21:01)
--- NOTE | 2019-02-17 21:01 | NUR ---
GIVEN FLAGYL, PT C/O SLEEPLESS, GIVEN RONALDO MD ORDERED, PT TOLERATED WELL.
--- NOTE | 2019-02-17 23:12 | NUR ---
PT C/O INCISION PAIN 07/28, GIVEN NORCO MD ORDERED, PT TOLERATED WELL. WILL CONTINUE TO MONITOR.
[2019-02-18] VITALS: BP 96/45
--- NOTE | 2019-02-18 01:44 | NUR ---
PT SLEEPING IN BED. NO ACUTE DISTRESS NOTED. WILL CONTINUE TO MONITOR.
[2019-02-18] MEDS: MORPHINE SULFATE 2 MG/ML SYR IVP PRN ×3 (03:56→12:46)
--- NOTE | 2019-02-18 03:56 | NUR ---
PT C/O 08/27 PAIN, GIVEN MORPHINE MD ORDERED, PT TOLERATED WELL.
--- NOTE | 2019-02-18 04:00 | NUR ---
GIVEN ANCEF MD ORDERED, PT TOLERATED WELL.
[2019-02-18] MEDS: metroNIDAZOLE 500 MG/NS PREMIX 100 ML IV SCH (05:00)
--- NOTE | 2019-02-18 05:00 | NUR ---
GIVEN FLAGYL MD ORDERED. PT TOLERATED WELL.
[2019-02-18] MEDS: INSULIN LISPRO SLIDING SCALE 100 UNITS/ML VIAL SUBQ PRN ×2 (06:09→11:50)
[2019-02-18] MEDS: BLOOD GLUCOSE MONITORING 1 DEV DEV FS SCH ×2 (06:09→11:40)
--- NOTE | 2019-02-18 06:09 | NUR ---
BS CHECKED, 228. ADMINISTERED INSULIN MD ORDERED. PT TOLERATED WELL.
[2019-02-18 06:40] LABS: MAGNESIUM 1.8 mg/dL (1.8-2.4); PHOSPHORUS 2.6 mg/dL (2.5-4.9)
[2019-02-18 06:41] LABS: ANION GAP 13.5 (8-16); CARBON DIOXIDE 25.4 mmol/L (21-32); CREATININE 0.7 mg/dL (0.6-1.3); POTASSIUM 3.9 mmol/L (3.5-5.1)
[2019-02-18 06:43] LABS: BASOPHILS # (AUTO) 0.1 K/uL (0.00-0.22); BASOPHILS % (AUTO) 0.7 % (0.0-2.0); EOSINOPHILS # (AUTO) 0.1 K/uL (0-0.4); EOSINOPHILS % (AUTO) 1.3 % (0.0-4.0); HEMATOCRIT 33.8 % (36-48); LYMPHOCYTES % (AUTO) 37.4 % (20.5-51.1); MEAN CORPUSCULAR HEMOGLOBIN 28 pg (27-31); MEAN CORPUSCULAR HGB CONC 33 g/dL (33-37); MEAN CORPUSCULAR VOLUME 85.7 fL (80-94); MONOCYTES # (AUTO) 0.7 K/uL (0.8-1.0); MONOCYTES % (AUTO) 6.2 % (1.7-9.3); NEUTROPHILS # (AUTO) 5.9 K/uL (1.8-7.7); NEUTROPHILS % (AUTO) 54.4 % (42.2-75.2); PLATELET COUNT (AUTO) 207 K/uL (140-450); RED BLOOD CELL COUNT(AUTO) 3.95 MIL/uL (4.20-5.40); RED CELL DISTRIBUTION WIDTH 13.7 % (11.6-13.7); WHITE BLOOD COUNT (AUTO) 10.8 K/uL (4.8-10.8)
--- NOTE | 2019-02-18 06:51 | NUR ---
PT SLEEPING IN BED. NO ACUTE DISTRESS NOTED. WILL CONTINUE TO MONITOR.
--- NOTE | 2019-02-18 07:25 | NUR ---
RECEIVED BEDSIDE REPORT FROM WOOD INSPECTOR NURSE. PATIENT IS AWAKE, ALERT AND ORIENTEDX4. NO SIGNS OF DISTRESS ON RA. SKIN IS INTACT. IV ON R HAND 22G INFUSING NS AT 60. CLEAN, DRY AND INTACT. AMBULATORY. CONTINENT. ABLE TO MAKE NEEDS KNOWN. BED IN LOW POSITION. CALL LIGHT WITHIN REACH. WILL CONTINUE TO MONITOR
[2019-02-18 08:00] VITALS: BP 103/44
[2019-02-18] MEDS: LISINOPRIL 20 MG TAB PO SCH (09:00)
[2019-02-18] MEDS: LACTOBACILLUS RHAMNOSUS GG 1 EACH CAP PO SCH (09:17)
[2019-02-18] MEDS: GABAPENTIN 300 MG CAP PO SCH (09:18)
[2019-02-18] MEDS: NICOTINE TRANSD SYS 14 MG/24 HR PATCH TD SCH (09:18)
--- NOTE | 2019-02-18 09:25 | NUR ---
ADMINISTERED MEDS. EDUCATED ON SIDE EFFECTS. PATIENT TOLERATED WELL. WILL CONTINUE TO MONITOR THE PATIENT
[2019-02-18] MEDS ORDERED: LACT10CA PO (10:40)
[2019-02-18] MEDS ORDERED: AMOX-999 PO (10:42)
--- NOTE | 2019-02-18 10:55 | NUR ---
PATIENT RESTING. NO SIGNS OF DISTRESS. WILL CONTINUE TO MONITOR THE PATIENT.
[2019-02-18] MEDS: NACL 0.9% 1,000 ML IV SCH (11:15)
[2019-02-18] MEDS: HYDROcodone/APAP 5/325 MG 1 TAB TAB PO PRN (11:44)
--- NOTE | 2019-02-18 12:46 | NUR ---
ADMINISTERED MORPHINE FOR PAIN. DR GONZÁLES SAID ITS OK TO GIVE IT TO THE PATIENT BEFORE DISCHARGED. PATIENT AWARE SHE SHOULD NOT DRIVE OR OPERATE MACHINERY. EDUCATED ON MEDS
--- NOTE | 2019-02-18 13:10 | NUR ---
EDUCATED ON DISEASE PROCESS, ABN S/SX, WHEN TO GO TO THE ER, EDUCATED ON MEDS, MEDS SENT TO PHARMACY, GAVE PRESCRIPTION FOR PAIN MEDS, EDUCATED ON FOLLOW UP W PCP AND SURGEON, PATIENTS VACCINES UP TO DATE PER PATIENT. IV REMOVED, TIP INTACT. PATIENT LEFT IN STABLE CONDITION WITH SIGNIFICANT OTHER. PATIENT IS AWARE SHE WILL BE CONTACTED TOMORROW IN REGARDS TO HOME HEALTH 3XS A WEEK. GAVE WOUND CARE SUPPLIES. PHOTO TAKEN AND WOUND CARE DONE. PATIENT LEFT TO GO HOME IN STABLE CONDITION
--- NOTE | 2019-02-18 13:50 | NUR ---
DIABETES EDUCATION MATERIAL WAS PROVIDED TO PT, AND PT ACCEPTED.
== END 2019-02-18 13:10 | disposition home health service (06) | DRG 721 ==
LOC: MED 13:39 → MTU 18:49
PROVIDERS: ADMIT General Practice; ATTEND General Practice
PROC: 0JB80ZZ Excision of Abdomen Subcutaneous Tissue and Fascia, Open Approach (ICD-10-PCS; principal; 2019-02-16 13:00)
DX: T81.41XA Infection following a procedure, superficial incisional surgical site, initial encounter (principal); E11.42 Type 2 diabetes mellitus with diabetic polyneuropathy; E44.0 Moderate protein-calorie malnutrition; E83.39 Other disorders of phosphorus metabolism; E83.42 Hypomagnesemia; L02.211 Cutaneous abscess of abdominal wall; L03.311 Cellulitis of abdominal wall; E66.9 Obesity, unspecified; I10 Essential (primary) hypertension; G89.29 Other chronic pain; F17.210 Nicotine dependence, cigarettes, uncomplicated; G47.00 Insomnia, unspecified; D64.9 Anemia, unspecified; Y83.8 Other surgical procedures as the cause of abnormal reaction of the patient, or of later complication, without mention of misadventure at the time of the procedure; Y92.89 Other specified places as the place of occurrence of the external cause; Z90.710 Acquired absence of both cervix and uterus
CPT/HCPCS: 36415; 71045; 76700; 76881; 80048; 80053; 80305; 81001; 81025; 82948; 83036; 83605; 83690; 83735; 84100; 84134; 84443; 85025; 85610; 85730; 86704; 86706; 86708; 86709; 86803; 86886; 86900; 86901; 87040; 87070; 87075; 87081; 87086; 87186; 87205; 87340; 93005; 93925; 93970; 96365; 96367; 96375; 99285; J0690; J0696; J1100; J1644; J1885; J2001; J2060; J2270; J2405; J2543; J2704; J3010; J3370; J3490; J7030; J7042; J7060; Q0092; Q9967

== ENCOUNTER 2020-12-12 22:35 | Emergency (ER) | payer MEDICAID ==
[~2020-12-12] VITALS: Ht 157.5 cm; Wt 86.2 kg
[~2020-12-12 22:35] MED LIST: AMOX-999 PO; DULA1.5S SC; GABA600T12 PO; LACT10CA PO; LISI-487 PO; TRAZ-343 PO
--- NOTE | 2020-12-12 22:41 | NUR ---
TO BED AMBULATORY
[2020-12-12 22:43] VITALS: BP 168/79
--- NOTE | 2020-12-12 23:53 | NUR ---
Dr. Mar examining patient.
--- NOTE | 2020-12-12 23:53 | NUR ---
55 y/o female presenting to ED c/o bloating like abdominal pain w/ burning sensation upon urination. Pt states the pain 9/10 for past 3 days. Pt states she was seen at [facility] for uti and given antibiotics x 2 weeks ago , she finished the medication and felt better for a few days and started hurting again. Pt a/o x 4 , rr even and unlabored, abd round soft and tender upon palpation of lower quadrants. Pt's urine noted to be orange. Pt states she is currently taking pyridium w/ no relief. Pt secondary c/o of coughing up blood. Pt states her throat feels dry and there is streaks of blood in sputum. pt states this has been occuring for x 3 days. pt placed in gown , connected to cardiac nurse presenting as NSR. VSS . Bed is locked and in lowest position, HOB elevated, side rail x 2 for pt safety. No acute distress noted.
[2020-12-13] MEDS ORDERED: NACL 0.9% 1,000 ML IV ONE (00:20)
[2020-12-13 00:30] LABS: BASOPHILS # (AUTO) 0.1 K/uL (0.00-0.22); BASOPHILS % (AUTO) 0.9 % (0.0-2.0); EOSINOPHILS # (AUTO) 0.3 K/uL (0-0.4); EOSINOPHILS % (AUTO) 1.7 % (0.0-4.0); HEMATOCRIT 44.2 % (36-48); HEMOGLOBIN 14.6 g/dL (12.0-16.0); LYMPHOCYTES # (AUTO) 3.8 K/uL (2.5-16.5); MEAN CORPUSCULAR HEMOGLOBIN 29 pg (27-31); MEAN CORPUSCULAR HGB CONC 33 g/dL (33-37); MEAN CORPUSCULAR VOLUME 86.1 fL (80-94); MONOCYTES % (AUTO) 6.1 % (1.7-9.3); NEUTROPHILS # (AUTO) 10.8 K/uL (1.8-7.7); NEUTROPHILS % (AUTO) 67.3 % (42.2-75.2); PLATELET COUNT (AUTO) 313 K/uL (140-450); RED BLOOD CELL COUNT(AUTO) 5.14 MIL/uL (4.20-5.40)
[2020-12-13 00:31] LABS: APPEARANCE,URINE CLEAR (CLEAR); BILIRUBIN,URINE NEGATIVE (NEGATIVE); BLOOD, URINE 3+ (NEGATIVE); COLOR,URINE YELLOW (YELLOW); LEUKOCYTE ESTERASE ,URINE 1+ (NEGATIVE); NITRITE, URINE POSITIVE (NEGATIVE); PH,URINE 5.5 (5.0-9.0); UGLUCOSE 3+ (NEGATIVE)
[2020-12-13 00:38] LABS: RBC,URINE 0-5 /HPF (0-5); WBC,URINE TOO MANY TO COUNT /HPF (0-5)
--- NOTE | 2020-12-13 01:00 | NUR ---
purewick placed per pt request at this time.
[2020-12-13] MEDS ORDERED: MORPHINE SULFATE 2 MG/ML SYR IVP ONE (01:05)
[2020-12-13] MEDS ORDERED: ONDANSETRON 4 MG/2 ML VIAL IVP ONE (01:05)
[2020-12-13 01:16] LABS: ALBUMIN 3.4 g/dL (3.4-5.0); CARBON DIOXIDE 27.7 mmol/L (21-32); CREATININE 0.8 mg/dL (0.6-1.3); POTASSIUM 3.7 mmol/L (3.5-5.1); TOTAL BILIRUBIN 0.3 mg/dL (0.0-1.0)
--- NOTE | 2020-12-13 01:30 | NUR ---
ice chips provided to pt at this time.
--- NOTE | 2020-12-13 01:53 | NUR ---
PT TAKEN TO CT
--- NOTE | 2020-12-13 02:03 | NUR ---
PT RETURNED FROM CT VIA [facility].
[2020-12-13] MEDS ORDERED: cefTRIAXone 1,000 MG VIAL ONE (02:11)
--- NOTE | 2020-12-13 02:30 | NUR ---
pt has no new needs. vss. no acute distress noted.
[2020-12-13] MEDS ORDERED: PHEN-1877 PO (02:52)
[2020-12-13] MEDS ORDERED: ALBU0.0912 IH (02:52)
[2020-12-13] MEDS ORDERED: CEPH-588 PO (02:52)
[2020-12-13 03:06] VITALS: BP 145/70
--- NOTE | 2020-12-13 03:06 | NUR ---
Patient discharged with v/s stable. Written and verbal after care instructions given and explained. Patient alert, oriented and verbalized understanding of instructions. Ambulatory with steady gait. All questions addressed prior to discharge. ID band removed. Patient advised to follow up with PMD. Rx of pyridium & keflex given. Patient educated on indication of medication including possible reaction and side effects. Opportunity to ask questions provided and answered.Pt provided sandwich and cola at this time.
== END 2020-12-13 03:06 | disposition home or self-care (01) ==
LOC: MED 22:35
DX: N12 Tubulo-interstitial nephritis, not specified as acute or chronic (principal); R04.2 Hemoptysis; E11.9 Type 2 diabetes mellitus without complications; I10 Essential (primary) hypertension; Z79.899 Other long term (current) drug therapy
CPT/HCPCS: 36415; 71275; 74177; 80053; 81001; 83605; 85025; 87040; 87086; 96361; 96365; 96375; 99285; J0696; J2270; J2405; Q9967; J7030